=== PATIENT | male | born 1955 | race Caucasian/White ===

== ENCOUNTER → 2018-10-12 10:42 | Outpatient (CLI) | payer BC, SELFPAY ==
[2018-10-12 11:19] LABS: Add Manual Diff / Slide Review NO; Basophils Percent Auto 0.9 % (0-2); Eosinophils Percent Auto 4.3 % (2-4); Hematocrit 43.7 % (41-53); Hemoglobin 14.7 g/dL (13.5-17.5); Mean Corpuscular HGB Conc 33.7 % (30-36); Mean Corpuscular Hemoglobin 32.2 PG (26-34); Mean Corpuscular Volume 95.4 fL (80-100); Neutrophils Absolute Auto 5500 /uL (3000-5900); Neutrophils Percent Auto 63.8 % (50-75); Platelet Count 179 X10^3/uL (150-400); Red Blood Cell Count 4.58 X10^6/uL (4.5-5.9); Red Cell Distribution Width 12.6 % (11.6-14.8); White Blood Cell Count 8.6 X10^3/uL (4.5-11.0)
[2018-10-12 11:43] LABS: Carbon Dioxide 30 mmol/L (22-32); Chloride 100 mmol/L (98-107); HEMOLYSIS < 15 (0-50); Potassium 3.5 mmol/L (3.4-5.1); Sodium 141 mmol/L (137-145)
== END ==
PROVIDERS: Family Provider Family Medicine; PCP Family Medicine; Visit Provider Orthopaedic Surgery
DX: Z01.812 Encounter for preprocedural laboratory examination (principal); Z01.818 Encounter for other preprocedural examination
CPT/HCPCS: 36415; 80051; 85025; 93005

== ENCOUNTER 2018-11-05 07:39 | Day surgery (SDC) | payer BC, SELFPAY ==
[2018-11-03 14:25] VITALS: BMI 41.3
[2018-11-05] VITALS (7 sets, daily range): BP systolic 129–143; BP diastolic 72–80; PULSE 63–94; RESP 10–16; TEMP 36.2–36.9; O2SAT 93–97; BMI 40.1
[2018-11-05] MEDS: LACTATED RINGERS 1,000 ML 42 ML IV ×2 (09:45→12:24)
[2018-11-05] MEDS: PREGABALIN 75 MG CAPSULE PO (10:39)
[2018-11-05] MEDS: CELECOXIB 200 MG CAPSULE PO (10:40)
[2018-11-05] MEDS: ACETAMINOPHEN 325 MG TABLET 975 MG PO (10:40)
--- NOTE | 2018-11-05 10:46 | PM.PREOP ---
Pre-operative Note Interval Note Pre-op Check: Yes History & Physical Reviewed by Physician and Yes Exam Performed Changes: No
--- NOTE | 2018-11-05 10:47 | P.OP_ITS ---
Operative Date/Time/Diagnoses Date of procedure: 11/05/18 Time of procedure: 13:35 Pre-op diagnosis: Bilateral medial compartment osteoarthritis Post-op diagnosis: same Procedure & Clinicians Procedure: Bilateral medial compartment arthroplasty Same procedure as scheduled: Yes Indications: The patient presents today for bilateral medial compartment arthroplasty after failure of conservative treatment. The nature of the procedure including the risks and benefits, alternatives, postoperative course and expected outcome were discussed and all questions answered. Consent was obtained. Operative site confirmed and marked. Surgeon: Jayson Hutchins Marketing Analytics Specialist: Paddy Mata Anesthesia Type: General and Local Operative Notes Findings: Severe medial compartment osteoarthritis bilateral knees. The tourniquet time was 44 min on the right and 49 min on the left. Closure Type: primary Specimen(s): none sent Implants & Drains: ZUK D femoral component, 4 tibial component and 8 mm polyethylene spacer bilaterally. Applied: implant(s) Estimated Blood Loss (mL): 20 Blood products transfused: none Procedure in detail: The patient was taken to the operative suite and placed under general anesthesia. The patient received prophylactic antibiotics 1 g of IV tranexamic acid prior to surgery. The lateral aspect of the leg was prepped and the knees were injected with 20 mL of 1% lidocaine with epinephrine. The legs was prepped and draped in usual sterile fashion. The leg was exsanguinated with an Esmarch dressing and the tourniquet raised to 250 torr on the left. A 10 cm medial parapatellar incision and arthrotomy was then made on the left side. The anterior aspect of the fat pad and medial meniscus was resected. A small amount of anterior tibial boss was resected with a oscillating saw. The knee was then extended and the alignment guide placed. The distal femoral and proximal tibial cutting guides were then pinned into place. The distal femoral cut was made in extension. The proximal tibial cut was made in flexion. All remaining meniscus was excised. Gaps were checked with blocks. Soft tissues were then injected with a combination of 20 mL of quarter percent Marcaine with epinephrine, 10 mL of Exparel. The femur was sized and the appropriate cutting guide placed. The peg holes were drilled and chamfer cuts made. Next the tibia was sized and drilled. Trial components were then placed. The knee had good jehovah's witness of soft tissue tension without over correction. Range of motion showed just a few degree flexion contracture with flexion beyond 125?. The trial components were removed. The knee was cleansed with Pulsavac irrigation and dried. The components were then cemented with high viscosity vacuum mixed bone cement. The knee was held in extension until the cement had adequately cured. The knee was then irrigated and inspected for any further debris. The extensor mechanism was closed at 90? of flexion with a few interrupted #1 Vicryl sutures and a running O V-LOC suture. The knee was then filled with 50 mL of solution containing 1 g of tranexamic acid and 10 mL of 0.5% Marcaine. The subcutaneous tissue was closed with 2-0 Vicryl. The skin was closed with a running 3 0 V-LOC suture and surgical adhesive. An Aquacel dressing was applied. The leg was then wrapped with an Aaron which will be kept on for the first 24 hours. The tourniquet time was 49 min on the left. The identical procedure was then carried out on the right side. The tourniquet time was 44 min on the right. The patient tolerated the procedure well and was returned to recovery room in good condition. Complications: none Condition: stable Disposition: same day surgery Plan for aftercare: Patient plans to discharge home. Will be admitted overnight if there is any difficulty with pain control immobilization.
[2018-11-05] MEDS: MIDAZOLAM 2 MG/2 ML VIAL IV (10:54)
--- NOTE | 2018-11-05 11:07 | SUR.PREOP ---
PT REMAINED STABLE, VSS AFTER IV VERSED GIVEN IN PRE OP AREA. PT SITTING UP IN BED TALKING TO SISTER AT BEDSIDE. PT TAKEN INTO THE OR BY OR NURSE AT THIS TIME.
[2018-11-05] MEDS: CLINDAMYCIN 900 MG/50 ML PIGGYBACK 50 MG IV (11:30)
--- NOTE | 2018-11-05 11:53 | SUR.OPER ---
Supine on padded OR bed. Pillow under head, arms secured on padded armboards <90 degree abduction. Safety belt across torso. Operative leg secured in DeMayo/Gregorio positioner. Foam padded brace at thigh of operative leg.
[2018-11-05] MEDS: LIDOCAINE 1% W/EPI INJ 20 ML INJ (12:03)
[2018-11-05] MEDS: BUPIVACAINE 0.5% W/ EPI (PF) VIAL 30 ML INJ (12:37)
[2018-11-05] MEDS: TRANEXAMIC ACID 1,000 MG VIAL 2000 MG INJ (12:39)
[2018-11-05] MEDS: BUPIVACAINE LIPOSOME 266 MG/20 ML VIAL INJ (12:45)
[2018-11-05] MEDS: SODIUM CHLORIDE 0.9% FLUSH 40 ML IV (12:48)
== END 2018-11-05 16:00 | disposition home or self-care (01) ==
PROVIDERS: PCP Family Medicine; Visit Provider Orthopaedic Surgery
PROC: (CPT 27446; principal; 2018-11-05 10:15)
DX: M17.11 Unilateral primary osteoarthritis, right knee (principal); M17.12 Unilateral primary osteoarthritis, left knee; I10 Essential (primary) hypertension
CPT/HCPCS: 27446; C1776; C9290; J1100; J2250; J2405; J2704; J3010

== ENCOUNTER 2019-05-20 12:06 | Inpatient (IN) | payer BC, SELFPAY ==
[2019-05-20] VITALS (15 sets, daily range): BP systolic 112–142; BP diastolic 45–75; PULSE 75–93; RESP 12–18; TEMP 36.3–37.3; O2SAT 93–100; BMI 40.6
--- NOTE | 2019-05-20 | PATH_ITS ---
[facility] Accession Number: [id number] . 01 Material submitted: . appendix - APPENDIX . 02 Diagnosis: Appendix, Laparoscopic Appendectomy: Acute appendicitis and serositis. The appendiceal tip demonstrates fibrous obliteration of the lumen. [facility]LY [facility]/05/24/2019 . 02 Electronically signed: . Ramona Gale MD, Pathologist NPI- [id number] . 01 Gross description: . Received in formalin, labeled appendix, is an appendix in two pieces (length-7.3 cm, diameter-up to 1.6 cm) with tena-pink smooth shiny partially exudate-covered serosa and attached mesoappendix (up to 3.2 cm in depth). The resection margin is received stapled. The proximal lumen is dilated with thickened hemorrhagic mucosa. The wall is up to 0.3 cm thick. The resection margin is inked black. Section code: (A1) resection margin en face; (A2-A6) proximal appendix with dilated lumen, entirely submitted proximal to distal; (A7) distal appendix, product support sales representative serial section; (A8) one-half of the bivalved tip. ([id number]) /MRV . 02 Pathologist provided ICD-10: K35.80 . 02 CPT . 875241 Specimen Comment: A duplicate report has been generated due to demographic updates. Performed at: 01 [facility] [address] [id number] MD Jayson Pollack MD Phone: [phone] Performed at: 02 [facility] [address] [place], [place] [id number] MD La Nena Pelaez MD Phone: [phone]
--- NOTE | 2019-05-20 14:46 | PC.NURSE ---
Patient received from air transport team, oriented to room and call light and settled into bed. States pain is improved after medications received during transport, describes pain at 2/10 in lower abdomen most tender on right side at this time. Urinal placed within reach. Maintain NPO. Awaiting to be seen by Dr. Tabler. KENT. Call light within reach.
--- NOTE | 2019-05-20 15:23 | P.HP_ITS ---
History of Present Illness Date Patient Seen: 05/20/19 Time Patient Seen: 16:20 Chief complaint: apendicitis Narrative: 64[facility] M [facility]. Developed pain over 24 hrs ago and came in for evaluation as it worsened through the day then overnight. CT shows appendicitis with fluid indicating possible perforation and he has a mild leukocytosis to 12. He is transferred here for surgery. Patient History Medical History BPH (benign prostatic hyperplasia) (Chronic) Erectile dysfunction (Chronic) HTN (hypertension) (Chronic) Hematuria (Chronic) Migraines (Chronic ~2005) Osteoarthritis (Chronic) Shoulder pain (Chronic ~2014) Chicken pox (Resolved ~1960) Dens fracture (Resolved ~07/2014) Fractures (Resolved ~2013) Measles (Resolved ~1958) Mumps (Resolved ~1960) Surgical History Hx of arthroscopy of left knee (Resolved ~03/2012) Hx of cervical spine surgery (Resolved ~01/2014) Family History (Updated 01/24/16 @ 00:00 by Conversion Provider) Father Age: 87 Hypertension Grandfather Lung cancer Heart attack Social History household members: none Smoking Status: Former smoker alcohol intake: current Family & Social History Family History Father Age: 87 Hypertension Grandfather Lung cancer Heart attack Social History: household members none Prior Living Arrangements House Safety & Behavioral: Feels Safe in Current Yes Environment Been Physically Hurt or No Threatened By a Person Suicidal Ideation Description None Suicide Plan Description No Plan Tobacco & Substance use: Tobacco type cigarettes Smoking Status Former smoker alcohol intake current alcohol intake frequency holiday/special occasion Substance Use Type does not use Meds Home Medications Medication Instructions Recorded Confirmed Type multivitamin [Multiple Vitamins] 1 tab PO DAILY 11/05/18 05/20/19 History tadalafil [Cialis] 5 mg PO BEDTIME 11/05/18 05/20/19 History tamsulosin 0.4 mg PO DAILY 11/05/18 05/20/19 History sumatriptan 6 mg/0.5 mL 6 mg SUBCUT ONCE #1 ml 03/02/19 05/20/19 Rx subcutaneous pen injector hydrochlorothiazide 25 mg PO DAILY 05/20/19 05/20/19 History lisinopril [Zestril] 40 mg PO DAILY 05/20/19 05/20/19 History Allergies Allergy/AdvReac Type Severity Reaction Status Date / Time Penicillins [PENICILLINS] Allergy Mild CHILDHOOD Verified 03/02/19 14:40 RASH Review of Systems Constitutional Constitutional: Reports as per HPI Exam Vital Signs (past 8 hours): - 05/20/19 14:00 Temperature 97.8 F Pulse Rate 77 Respiratory Rate 18 Blood Pressure 121/70 Pulse Oximetry 96 Oxygen Flow Rate 0 Narrative Exam Narrative: AAO, NAD, obese male EOMI, MMM, no scleral icterus unlabored RA soft, ttp RLQ MAEW visible skin dry and intact Assessment & Plan (1) Appendicitis: Current visit: Yes Status: Acute Assessment & Plan narrative: - IV abx - plan for appendectomy --> all r/b/a discussed and pt wishes to proceed - NPO, IVFs until surgery
[2019-05-20] MEDS: LACTATED RINGERS 1,000 ML 42 ML IV ×2 (17:46→18:35)
[2019-05-20] MEDS: CIPROFLOXACIN 400 MG/200 ML PIGGYBACK 200 MG IV (17:46)
[2019-05-20] MEDS: metroNIDAZOLE 500 MG/100 ML PIGGYBACK 100 MG IV (18:01)
--- NOTE | 2019-05-20 18:16 | SUR.OPER ---
Supine on padded OR bed, head on pillow, left arm padded and tucked at side, legs uncrossed, safety belt at thigh, tape over blanket over lower legs .
[2019-05-20] MEDS: BUPIVACAINE 0.25% W/ EPI 30 ML VIAL INJ (18:25)
--- NOTE | 2019-05-20 18:55 | PC.NURSE ---
Addendum entered by Mara Goddard R.N. 05/20/19 23:43: 2030- Pt returned from PACU, 3 lap sites, all with bandaids, RMQ bandaid saturated sang, cleaned, incision well approximated with 4 nadeem, bandaid, CDI. Up to BRP, upon return to bed nausea, diaphoretic, pain 7/10, medicated with dilaudid 0.5mg IV and zofran 4mg IV, both effective. Calf SCD's on ice to ABD, pillow for splint, bed alarm on for safety. Original Note: 1530- Pt taken down to OR. Landy took IV ABO's to start in OR. Pt A/O 05%RA, LS clear denies SOB. Pt rates pain to RLQ 2/10, denies nausea, BT+. LAC SL. VSS.
--- NOTE | 2019-05-20 19:10 | PM.OP.1 ---
Operative Date/Time/Diagnoses Date of procedure: 05/20/19 Time of procedure: 19:10 Pre-op diagnosis: Appendicitis Post-op diagnosis: other (Perforated Appendicitis) Procedure & Clinicians Procedure: Laparoscopic Appendectomy Same procedure as scheduled: Yes Indications: 64yo M transferred with over 24 hours of increasing abdominal pain and CT findings of appendicitis with possible perforation. Treated with IV antibiotics and taken to the OR after informed consent for surgery. Surgeon: Jeanette Tabler Click Yes if Unassisted: Yes Anesthesia Type: General Operative Notes Findings: Appendicitis with focal perforation and large appendicolith Closure Type: primary Specimen(s): other (appendix) Estimated Blood Loss (mL): 5 Procedure in detail: The patient was taken to the operating room and placed on the operating table in supine position. The abdomen was prepped and draped in sterile fashion and a timeout performed with the team present. Using a 15 blade scalpel and after infiltration with local anesthesia, a small 5 mm incision was made just to the left of the umbilicus. Using a 5 mm Optiview camera port, the laparoscope was inserted into the abdomen. Once confirmed to be within the peritoneum, the abdomen was insufflated with air. Diagnostic laparoscopy showed no injury from initial trocar placement. Under direct vision and after infiltration with local anesthesia, an additional 5 mm trocar was then placed in the midline just above the pubic hairline and a 12 mm trocar was then placed in the left lower quadrant. The patient was then placed in left side down and in Trendelenberg position. The small bowel was retracted to the left side of the patient. The appendix was identified and was inflamed and thickened. This was grasped with a blunt grasper. A large palpable appendicolith previously noted on CT (1x2cm) was felt in the appendix and made grasping difficult. A small focal perforation is also noted with minimal spillage in the area. Using a [place] dissector, a window was made between the mesoappendix and the appendix itself. Using a 45mm Endo OZZY stapler with a tissue load, the appendix was transected out at the base. Using a vascular load, the mesoappendix was then transected with the Endo OZZY stapler as well. The staple lines were noted to be intact with no evidence of leakage or bleeding. The appendix was placed into an EndoCatch retrieval bag and removed through the 12 mm port. However, due to the large stone, the appendix became lodged in the subcutaneous tissue. The opening was dilated but the bag still broke during retrieval. The incision was opened further and the appendix, now split in two parts, was removed. The staple line was inspected and found to be intact and hemostatic. The area and pelvis are irrigated and suctioned free of fluid. The 12mm port site fascia was closed using an EndoClose device and an 0-vicryl suture. The remainder of the local anesthesia was injected over each of the fascial incision sites. The secondary trocars were then removed under direct vision noting no bleeding. The abdomen was allowed to desufflate fully and the final trocar was removed. The enlarged LLQ incision was thoroughly irrigated. The skin incisions were then closed using nadeem due to concern over infection developing given the broken bag. All counts were correct at the end of the procedure. The abdomen was cleaned and dried. The patient was awakened and taken to postanesthesia care unit in stable condition. Complications: other (endocatch bag broke in subcutaneous tissues increasing likelihood of skin infection) Condition: stable Disposition: observation Plan for aftercare: Will stay in hospital for IV antibiotics due to perforation.
[2019-05-20] MEDS: HYDROMORPHONE 2 MG INJ 0.5 MG IV ×4 (19:35→19:50)
--- NOTE | 2019-05-20 20:00 | SUR.PHASEI ---
charted 5 doses of Dilaudid only 4 given - accidentally entered one dose x 2 for same administration time.
[2019-05-20] MEDS: HYDROMORPHONE 0.5 MG INJ IV ×2 (21:15→22:55)
[2019-05-20] MEDS: ONDANSETRON 4 MG/2 ML INJ IV (21:15)
[2019-05-20] MEDS: SODIUM CHLORIDE 0.9% 1,000 ML 125 ML IV (21:15)
[2019-05-21] MEDS: HYDROMORPHONE 0.5 MG INJ IV ×2 (00:57→05:45)
[2019-05-21] MEDS: metroNIDAZOLE 500 MG/100 ML PIGGYBACK 100 MG IV ×3 (00:58→17:54)
[2019-05-21] MEDS: ONDANSETRON 4 MG/2 ML INJ IV ×3 (01:21→17:56)
--- NOTE | 2019-05-21 01:49 | PC.NURSE ---
Up to the BR. C/O pain & nausea with movement. Medicated with 0.5 mg. of Dilaudid IVP & 4 mg. of Zofran IV. Applied cold compress to his forehead. Will cont. POC & monitor,
[2019-05-21] MEDS: CIPROFLOXACIN 400 MG/200 ML PIGGYBACK 200 MG IV ×2 (04:02→16:54)
[2019-05-21 04:07] VITALS: BP 129/71; PULSE 73; RESP 18; TEMP 36.4; O2SAT 96
[2019-05-21 09:00] VITALS: BP 121/68; PULSE 69; RESP 16; TEMP 36.6; O2SAT 95
[2019-05-21] MEDS: ENOXAPARIN 40 MG/0.4 ML SYRINGE SUBCUT (09:44)
[2019-05-21] MEDS: TAMSULOSIN 0.4 MG CAPSULE PO (09:44)
[2019-05-21] MEDS: SODIUM CHLORIDE 0.9% 1,000 ML 125 ML IV ×2 (09:45→20:37)
[2019-05-21 10:30] VITALS: O2SAT 96
--- NOTE | 2019-05-21 11:01 | PC.NURSE ---
Pt is A&Ox3. At this time he is pain free and nausea free, 3 bandaide dressings are all cdi, Pt states that he is most tender to his l.paula stollrant, just into see patient and states that patient had a rock or something in that incision and we want to watch area for infection. Pt has been getting nauseous when getting up and going to the bathroom. He is back to bed and voided 600cc, unable to have a bowel movement at this time.
--- NOTE | 2019-05-21 11:34 | PC.NURSE ---
Pt is on comfort care. She is now on 2L of O2 with Nasal prongs in place. She is unresponsive. O2 sats are 90-91%. HR between 90s-111. Her breathing is labored with apnea. Pt is lying on her back more to her l.side. She is comfortable with morphine gtt infusing at 2cc/hr. Family in room and visiting. Explained to family if they needed anything not to hesitate and put call johnson on or come and get this RN.
--- NOTE | 2019-05-21 11:37 | PM.PN.1 ---
Subjective Date Patient Seen: 05/21/19 Time Patient Seen: 11:37 Interval history: Tired and sore this morning, narcotics also causing nausea. Has voided but not otherwise been OOB. Vitals normal. Exam Vital Signs (past 8 hours): - 05/21/19 04:07 05/21/19 09:00 Temperature 97.6 F 97.8 F Pulse Rate 73 69 Respiratory Rate 18 16 Blood Pressure 129/71 121/68 Pulse Oximetry 96 95 Oxygen Delivery Method Nasal Cannula Oxygen Flow Rate 0 Narrative Exam Narrative: AAO, NAD, obese male EOMI, MMM, no scleral icterus unlabored RA soft, nd, appropriate ttp, inc c/d/i with no erythema or drainage MAEW visible skin dry and intact Assessment & Plan Assessment & Plan narrative: - s/p lap appendectomy with note of small perforation --> keep in hospital with IV abx for now, day 2/4 IV cipro and flagyl --> AF, VSS - inc c/d/i, monitor for infection as bag broke with appendix in LLQ incision - OOB, ambulate - still sore, adding scheduled toradol - CLD, not ready to advance today; MIVFs - voiding; on home tamsulosin - normal BP today, not yet on home meds
[2019-05-21] MEDS: KETOROLAC 30 MG/ML VIAL IV ×2 (12:14→17:55)
--- NOTE | 2019-05-21 13:57 | CM.IDA ---
Initial DCP Assessment Note: Pt is a 64 yo male, resident of [facility]. Pt admitted for pre-op diagnosis of lap appy, post-op diagnosis of lap appy w/small perforation. PCP: Jayson Franklin Payer: ANISA Stewart Reviewed chart. Pt will likely remain in the hospital for at least another 24-48hrs for pain regimen, IV abx regimen, to begin ambulation and slow progression of diet.. not ready to advance today per notes. Attempted assess at bedside today and pt sleeping soundly, will return Friday to introduce role. SUSAN Cazares Discharge Planning/Care Management CM Discharge Assessment Start: 05/21/19 13:54 Freq: Status: Active Protocol: Document 05/21/19 13:55 ARNEL (Rec: 05/21/19 13:57 ARNEL [id number]) Discharge Planning Assessment Assigned Implementation Consultant SUSAN Gates DPOA/Assigned Designee Name Mckenzie Walker leda Contact Information [phone] Advance Directives? No History Provided By Patient Medical Record Prior Living Arrangements House Household Members spouse none Type of transporation used prior to Drives own vehicle admit Independent with ADL's Yes Is patient alert and oriented? Yes Barriers to Discharge No Discharge Plan Home Transportation Arrangement Family Referrals Initiated None needed Review Status In Process
[2019-05-21 14:16] VITALS: O2SAT 94
[2019-05-21 15:52] VITALS: BP 128/71; PULSE 77; RESP 20; TEMP 37.3; O2SAT 97
[2019-05-21 20:28] VITALS: BP 115/71; PULSE 77; RESP 18; TEMP 36.9; O2SAT 92
--- NOTE | 2019-05-21 21:09 | PC.NURSE ---
Addendum entered by Marisol Jensen R.N. 05/21/19 22:28: Pt desats with sleep to 86%. Replaced 02 2L per NC. Pt rouses easily to movement in room. Oxygen saturation level with 2L/min 98%. Original Note: Pt awake and alert in bed @ beginning of shift. Admits to passing flatus and bowel tones are present. Abdomen is distended. Three large bandaids to abdomen intact. Admits to nausea with taking clear liquids @ dinner time. Also, c/o headache. Administered toradol as ordered and zofran. Ice pack to head. Pt off of oxygen as states feels as though this is contributing to headache. Room air 92% per continuous monitor. Pt able to sleep for a while and when wakens spontaneously states headache and nausea resolved.
[2019-05-22] VITALS (8 sets, daily range): BP systolic 128–145; BP diastolic 56–81; PULSE 53–80; RESP 12–18; TEMP 36.5–37.1; O2SAT 97–100
[2019-05-22] MEDS: KETOROLAC 30 MG/ML VIAL IV ×5 (00:11→23:48)
[2019-05-22] MEDS: metroNIDAZOLE 500 MG/100 ML PIGGYBACK 100 MG IV ×3 (01:04→17:17)
[2019-05-22] MEDS: CIPROFLOXACIN 400 MG/200 ML PIGGYBACK 200 MG IV ×2 (03:45→16:09)
--- NOTE | 2019-05-22 06:12 | PC.NURSE ---
Slept better last night, denies any nausea, no C/O MARTIN. Pain level 2-3 & reports pain is tolerable. Took off 02 he was @ 1 liter all shift. RA SPO2 94%, will cont. POc & monitor.
[2019-05-22] MEDS: SODIUM CHLORIDE 0.9% 1,000 ML 125 ML IV (06:57)
[2019-05-22] MEDS: TAMSULOSIN 0.4 MG CAPSULE PO (08:50)
[2019-05-22] MEDS: ENOXAPARIN 40 MG/0.4 ML SYRINGE SUBCUT (08:50)
--- NOTE | 2019-05-22 11:14 | PM.PN.1 ---
Subjective Date Patient Seen: 05/22/19 Time Patient Seen: 11:14 Interval history: Feeling quite well, hungery + flatus, no BM voiding up ambulating Exam Vital Signs (past 8 hours): - 05/22/19 05:49 05/22/19 07:43 05/22/19 07:50 Temperature 97.7 F 98.2 F Pulse Rate 79 79 Respiratory Rate 18 18 Blood Pressure 139/75 142/80 H Pulse Oximetry 99 100 97 Oxygen Delivery Method Room Air Oxygen Flow Rate 0 Narrative Exam Narrative: NAD, looks quite well breathing comfortably on RA RRR strong radial pulse Abd - rotund, minimally tender, Dressing removed. wounds intact. Brawny area of induration apprioximately 1-2 cm surrounding each wound - appears to be skin reaction not underlying infection. periphery warm Assessment & Plan Assessment & Plan narrative: 64 yo man POD2 s/p lap appy for perforated appendicitis w/o large amount of intraabdominal contamination. Now well. Plan: Will closely observe wounds for s/s infection Now on day 3/4 of IV ciprofloxacin + metronidazole OK for general diet OK to shower ambulate Starting stool softener Holding hm BP meds On enoxaparin for DVT proph Anticipate D/c home Friday
--- NOTE | 2019-05-22 12:33 | PC.NURSE ---
Post-op: Pt feeling much better today. Has been up and amb several times today in the hallways. Uses his IS to 1999. O2 sat ra is 97% or greater. Bandaids on abd are clean and dry. BT's + and passing flatus. Had 2 sm bm;s today and is hungry. Will get general diet at lunch. Denies any concerns at this time. Cont w/poc.
[2019-05-22] MEDS: POLYETHYLENE GLYCOL 3350 17 GM POWD.PACK PO (13:18)
--- NOTE | 2019-05-22 14:20 | CM.DPNOTE ---
Met w/pt this morning to introduce role of [place] certified financial planner. Pt is sitting up in chair, he explains he is anxious to get home but doesn't want another infection to develop. Pt lives alone but does have supportive friends and a boss that can assist as needed. Pt is very concerned this morning about how he will get home when he is medically cleared. This TRAINING AND DEVELOPMENT HEAD suggests staff arrange [employer] to get him to the [facility] terminal, use a priority boarding pass to get on and then have someone transport pt home [place]? Pt says he would rather book a plane back to the [place]. This TRAINING AND DEVELOPMENT HEAD then suggested pt review the flight schedule and book something if he chooses. can still arrange a [employer] to either plane or ferry (?) TRAINING AND DEVELOPMENT HEAD team will follow closely to assist in transportation home if assist is needed. No other barriers to safe [place] back home identified today. SUSAN Cazares
[2019-05-22] MEDS: SODIUM CHLORIDE 0.9% 500 ML 25 ML IV (16:09)
--- NOTE | 2019-05-22 16:31 | PC.NURSE ---
Addendum entered by Marisol Jensen R.N. 05/22/19 19:34: Ambulatory in hallway. States incisional pain to abdomen increases with activity. Up to bathroom to void multiple times. Requests ice pack to abdomen and states this is helpful to manage pain. This was provided. Declines invite to shower. Per report, pt desats with sleep and this technical proposal writer observed this last evening shift. Pt reports headache occurs with 2L of oxygen. Pt was set up with 1L per nc and encouraged to use when sleeping. Encouraged pt to consider evaluation for sleep apnea. Pt expresses concern re getting to bathroom in time if bowels need to move and is reluctant to wear scd's at this time. Ankle waving was encouraged while awake. Original Note: Pt independently ambulating in hallway @ beginning of shift. Rates incisional pain 2/10, denies nausea. Admits to passing flatus and stool multiple times today. Returned to room and up in recliner for general diet. Takes slowly, but denies nausea. Toradol as per emar to manage pt's pain.
[2019-05-23] MEDS: metroNIDAZOLE 500 MG/100 ML PIGGYBACK 100 MG IV ×2 (01:02→08:58)
[2019-05-23] MEDS: CIPROFLOXACIN 400 MG/200 ML PIGGYBACK 200 MG IV (03:55)
[2019-05-23 04:00] VITALS: BP 131/68; PULSE 63; RESP 14; TEMP 36.4; O2SAT 97
--- NOTE | 2019-05-23 06:53 | PC.NURSE ---
3 episodes of loose stool, 2 large loose stools & 1 small. Pt. denies any pain this morning & declined his Toradol. Already showered this morning, bed linens changed. Currently sitting in the recliner, no C/O nausea all shift. Will cont. POC & monitor.
[2019-05-23 08:07] VITALS: BP 129/78; PULSE 52; RESP 17; TEMP 36.6; O2SAT 97
[2019-05-23] MEDS: ENOXAPARIN 40 MG/0.4 ML SYRINGE SUBCUT (08:58)
[2019-05-23] MEDS: TAMSULOSIN 0.4 MG CAPSULE PO (08:59)
[2019-05-23 11:36] VITALS: BP 146/78; PULSE 50; RESP 15; TEMP 36.6; O2SAT 97
--- NOTE | 2019-05-23 11:47 | CM.DPC ---
DCP Discharge home Per Surgeon, pt is medically stable to d/c home today with daily wound dressing changes. Per RN, pt's wound is in a difficult location for pt to easily see himself and he lives alone and interested in HH RN for wound care. GUERO called the only HH agency that serves the [facility] and [facility] confirms that they do not accept pt's insurance of [facility]. GUERO updated RN and met bedside with pt and explained role and informed pt of the lack of HH and pt states that he knows a lot of people and neighbors on Friday and is not too concerned about being able to complete the dressing changes and plans to call on a friend EMT that is medically training if needed. Pt states his Dtr lives down by [place] and if pt really needed assist he could call on her to come stay but pt and MD do not feel this is necessary. MD currently in room to do final dressing change/teaching. Pt states he has scheduled an [facility] from [facility] back to Friday today around 1500 and plans to pay for taxi to [facility] and has his friend/boss on [address] to pick him up when he arrives and take him home. Plan: Patient to d/c home today via private pay taxi to [place] to fly home around 1500. SUSAN Monae
--- NOTE | 2019-05-23 11:54 | PM.DS.1 ---
History of Present Illness Date Patient Seen: 05/23/19 Time Patient Seen: 11:54 Chief complaint: apendicitis Narrative: 64-year-old man presented as transfer from [place] for signs and symptoms of acute appendicitis -he had a mild leukocytosis to [address] scan demonstrating a dilated appendix with adjacent fluid -in the setting of 24 hours right lower quad pain Discharge Providers Date of admission: 05/20/19 12:06 Discharge Date: 05/23/19 Primary care physician: Jayson Franklin MD Discharge provider: Negrito Lowery Summary Discharge Diagnosis: Acute perforated appendicitis Wound infection Obesity Hypertension BPH Hospital Course: 64-year-old man admitted for acute appendicitis was taken to the operating room on 05/20/2019 for laparoscopic appendectomy -a focal perforation was identified. Large fecalith was also noted. During the course of removing the appendix through the abdominal wall -the left lower quadrant wound was contaminated from the fecalith. The area was washed out. Patient was continued on IV ciprofloxacin and metronidazole for total of 4 days. He clinically did quite well. Was afebrile with normal vital signs tolerating a general diet up ambulating with resolution of his abdominal pain and tenderness. On postop day 3 -his right lower quadrant wound had spreading erythema and induration -suspicious of an underlying wound infection. The nadeem were removed the wound was opened and light purulent material was evacuated from the cavity. The cavity was then copiously washed out and packed wet-to-dry. Patient was taught how to do b.i.d. wet-to-dry dressing. He felt comfortable with this and was discharged home. Within an additional 6 days of levofloxacin/metronidazole -for total antibiotic course of 10 days. Status at Discharge Cognitive/behavioral status at discharge: oriented Functional status at discharge: independent ambulation Overall status at discharge: patient is back to baseline Time Spent with Patient Greater than 30 minutes Exam Vital Signs (past 8 hours): - 05/23/19 04:00 05/23/19 08:07 05/23/19 11:36 Temperature 97.5 F L 97.9 F 97.9 F Pulse Rate 63 52 L 50 L Respiratory Rate 14 17 15 Blood Pressure 131/68 129/78 146/78 H Pulse Oximetry 97 97 97 Oxygen Delivery Method Room Air Oxygen Flow Rate 0 Narrative Exam Narrative: Well-appearing man no acute distress Breathing comfortably on room air Regular rate and rhythm strong radial pulse Abdomen soft nontender nondistended Circumferential area of erythema and induration approximately 3 cm surrounding left lower quadrant wound - opened at bedside and washed out periphery warm and well perfused. Discharge Plan Discharge Plan Patient Disposition: Home Discharge Med Rec/Prescriptions Prescriptions: New ibuprofen 800 mg tablet 800 mg PO TID Qty: 60 RF: 0 docusate sodium [Colace] 100 mg capsule 100 mg PO BID Qty: 60 RF: 0 oxycodone-acetaminophen 5-300 mg tablet 1 tab PO Q4-6H PRN (Reason: pain) Qty: 30 RF: 0 levofloxacin 500 mg tablet 500 mg PO DAILY Qty: 6 RF: 0 metronidazole 500 mg tablet 500 mg PO Q8H Qty: 18 RF: 0 Continued sumatriptan succinate 6 mg/0.5 mL pen injector 6 mg SUBCUT ONCE Qty: 1 RF: 11 tamsulosin 0.4 mg Capsule 0.4 mg PO DAILY RF: 0 tadalafil [Cialis] 5 mg Tablet 5 mg PO BEDTIME RF: 0 multivitamin [Multiple Vitamins] Tablet 1 tab PO DAILY RF: 0 hydrochlorothiazide 25 mg tablet 25 mg PO DAILY RF: 0 lisinopril [Zestril] 40 mg tablet 40 mg PO DAILY RF: 0 Follow up/Referrals: Jayson Franklin MD [Primary Care Provider] - Jeanette Lopez MD [Physician] - Provider Discharge Instructions Diet: Diet as Tolerated Activity: No lifting over 15lbs for 4 weeks. OK to shower. OK to bathe in 2 weeks. Follow up with Dr Lopez for staple removal in about 10 days Other treatments: Your wound was opened on your left side - two times each day remove the old gauze then shower if you need to (1x day). After this moisten a strip a gauze and pack it firmly into the wound - leave a wick outside the wound. Put dry gauze on top of this and hold in place with tape. A bit of drainage is expected through the gauze. Keep packing until the cavity fills in from the bottom up. Skin/Wound/Dressing Care Report to your healthcare provider any signs of infection, such as:: chills, fever and increased pain Visit Report/Discharge Packet Instructions: DI for an Appendectomy, DI for Laparoscopy, DI for Constipation, Appendectomy -- Laparoscopic Surgery, [facility]: Wound Care Discharge Data Primary Care Provider: Jayson Franklin Attending Provider: Jeanette Lopez Admyumiko Date/Time: 05/20/19 12:06
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
== END 2019-05-23 14:25 | disposition home or self-care (01) | DRG 339 ==
PROVIDERS: Admitting Provider Surgery; PCP Student in an Organized Health Care Education/Training Program; Visit Provider Surgery
PROC: 0DTJ4ZZ Resection of Appendix, Percutaneous Endoscopic Approach (ICD-10-PCS; CPT 44970; principal; 2019-05-20 18:15)
DX: K35.32 Acute appendicitis with perforation, localized peritonitis, and gangrene, without abscess (principal); Z68.41 Body mass index [BMI] 40.0-44.9, adult; T81.41XA Infection following a procedure, superficial incisional surgical site, initial encounter; I10 Essential (primary) hypertension; N40.0 Benign prostatic hyperplasia without lower urinary tract symptoms; Z87.891 Personal history of nicotine dependence; R11.0 Nausea; E66.9 Obesity, unspecified
CPT/HCPCS: 44970; 94760; 94762; 99222; J0330; J0744; J1100; J1170; J1650; J1885; J2405; J2704; J3010

== ENCOUNTER → 2020-06-06 10:07 | Outpatient (CLI) | payer BC, SELFPAY ==
[2019-05-20 12:26] VITALS: BMI 40.6
[2020-06-06 10:42] LABS: Hemoglobin A1C% w Est Avg Glu 5.9 % (4.0-6.0)
[2020-06-06 10:50] LABS: BUN Creatinine Ratio 16.1 (6-22); Blood Urea Nitrogen 14 mg/dL (9-20); Calcium 9.9 mg/dL (8.4-10.2); Carbon Dioxide 32 mmol/L (22-32); Chloride 101 mmol/L (98-107); Cholesterol 165 mg/dL (140-199); Estimated Glomerular Filt Rate > 60.0 mL/min (>60); Glucose 114 mg/dL (80-110); HDL Cholesterol 40 mg/dL (40-60); HEMOLYSIS 15 (0-50); LDL Cholesterol Calculated 93 mg/dL (<100); Potassium 4.3 mmol/L (3.4-5.1); Sodium 138 mmol/L (137-145); Triglycerides 161 mg/dL (35-150)
[2020-06-06 11:18] LABS: Prostate Specific Antigen Scrn 0.392 ng/mL (0.1-4.0)
[2020-06-06 11:55] LABS: Vitamin D 25 Hydroxy (D3) 26.4 ng/mL (30.0-100.0)
== END ==
PROVIDERS: PCP Student in an Organized Health Care Education/Training Program; Referring Provider Student in an Organized Health Care Education/Training Program; Visit Provider Student in an Organized Health Care Education/Training Program
DX: Z12.5 Encounter for screening for malignant neoplasm of prostate (principal); E66.01 Morbid (severe) obesity due to excess calories; R73.9 Hyperglycemia, unspecified; E55.9 Vitamin D deficiency, unspecified; E78.2 Mixed hyperlipidemia; I10 Essential (primary) hypertension
CPT/HCPCS: 36415; 80048; 80061; 82306; 83036; G0103

== ENCOUNTER → 2020-06-13 07:52 | Outpatient (CLI) | payer BC, SELFPAY ==
[2019-05-20 12:26] VITALS: BMI 40.6
--- NOTE | 2020-06-13 07:53 | DI.US.S_ITS ---
PROCEDURE: US ABD AORTA ANEURYSM SCREEN INDICATIONS: SCREEN TECHNIQUE: Real time scanning was performed of the aorta and iliac arteries, with image documentation. COMPARISON: None. FINDINGS: Aorta: Proximal aortic diameter measures 2.9 cm. Mid-aorta measures 2.0 cm. Distal aortic diameter is 2.0 cm. Iliac arteries: Right common iliac artery measures 1.4 cm. Left common iliac artery measures 1.2 cm. IMPRESSION: No evidence of abdominal aortic aneurysm. Dictated by: Jannie Herrera MD, PhD on 06/13/2020 at 13:26 Approved by: Jannie Herrera MD, PhD on 06/13/2020 at 13:28
== END ==
PROVIDERS: PCP Student in an Organized Health Care Education/Training Program; Referring Provider Student in an Organized Health Care Education/Training Program; Visit Provider Student in an Organized Health Care Education/Training Program
DX: Z13.6 Encounter for screening for cardiovascular disorders (principal); Z87.891 Personal history of nicotine dependence
CPT/HCPCS: 76706